=== PATIENT | female | born 1970 | race Hispanic/Latino ===

== ENCOUNTER 2021-03-29 07:16 | Emergency (ER) | payer SELFPAY ==
[~2021-03-29] VITALS: Ht 162.6 cm; Wt 83.5 kg
[2021-03-29] MEDS ORDERED: ACETAMINOPHEN-1 EAC3 PO (07:30)
[2021-03-29] MEDS ORDERED: IBUPROFEN IB200 MG PO (07:30)
[2021-03-29] MEDS ORDERED: KETOROLAC TROMETHAMINE 30 MG/ML VIAL IM ONE (07:45)
[2021-03-29] MEDS ORDERED: ACETAMINOPHEN 325 MG TAB PO ONE (07:45)
[2021-03-29] MEDS ORDERED: ACETAMINOPHEN 325 MG TAB ONE (07:55)
[2021-03-29] MEDS ORDERED: KETOROLAC TROMETHAMINE 30 MG/ML VIAL ONE (07:55)
[2021-03-29] MEDS ORDERED: JANUVIA25 MG PO (08:06)
[2021-03-29] MEDS ORDERED: JARDIANCE10 MG (08:06)
[2021-03-29] MEDS ORDERED: HYDROCHLOROTHIA25 MG PO (08:06)
[2021-03-29] MEDS ORDERED: TOPIRAMATE25 MG PO (08:06)
[2021-03-29] MEDS ORDERED: NEURONTIN300 MG PO (08:06)
[2021-03-29] MEDS ORDERED: ATORVASTATIN CA20 MG PO (08:06)
[2021-03-29] MEDS ORDERED: METOPROLOL SUCC25 MG PO (08:06)
[2021-03-29] MEDS ORDERED: LISINOPRIL10 MG PO (08:06)
[2021-03-29] MEDS ORDERED: LYRICA100 MG PO (08:06)
[2021-03-29] MEDS ORDERED: TRICOR145 MG PO (08:06)
[2021-03-29] MEDS ORDERED: [UNRECOGNIZED DRUG - OTHER] (08:06)
== END 2021-03-29 08:16 | disposition home or self-care (01) ==
LOC: FSED 07:26
DX: M54.41 Lumbago with sciatica, right side (principal); I10 Essential (primary) hypertension; E11.40 Type 2 diabetes mellitus with diabetic neuropathy, unspecified; J44.9 Chronic obstructive pulmonary disease, unspecified; E78.5 Hyperlipidemia, unspecified; I50.9 Heart failure, unspecified; I25.10 Atherosclerotic heart disease of native coronary artery without angina pectoris; G40.909 Epilepsy, unspecified, not intractable, without status epilepticus
CPT/HCPCS: 72100; 96372; 99283; J1885